=== PATIENT | male | born 1950 | race Caucasian/White ===

== ENCOUNTER 2017-02-05 16:32 | Emergency (ER) | payer MEDICARE, MEDICAID ==
[2017-02-05 17:29] LABS: BASOPHILS % (AUTO) 2 % (0-3); EOSINOPHILS % (AUTO) 3 % (0-9); HEMATOCRIT 33 % (39-53); MEAN CORPUSCULAR HGB CONC 33.7 gm/dl (32.0-36.0); MEAN CORPUSCULAR VOLUME 86 fL (80-100); NEUTROPHILS % (AUTO) 72.7 % (37-80)
[2017-02-05 17:35] LABS: ALBUMIN 3.1 gm/dl (3.4-5.0); CALCIUM 9.2 mg/dl (8.5-10.1); POTASSIUM 4.1 mMol/L (3.5-5.1)
[2017-02-05] MEDS ORDERED: LOPERAMIDE HYDROCHLORIDE 2 MG CAP PO PRN (19:53)
[2017-02-05] MEDS ORDERED: GUAIFENESIN 200 MG/10 ML SOL PO PRN (19:53)
[2017-02-05] MEDS ORDERED: SENNOSIDES A AND B 8.6 MG TAB PO PRN (19:53)
[2017-02-05] MEDS ORDERED: NOVOLOG FLEXPEN SC SCH (21:00)
[2017-02-05] MEDS: LEVEMIR PEN SC SCH (21:11)
[2017-02-05] MEDS: GABAPENTIN 100 MG CAP PO SCH (21:12)
[2017-02-05] MEDS: CARVEDILOL 3.125 MG TAB PO SCH (21:12)
[2017-02-05] MEDS: ACETAMINOPHEN 500 MG 500 MG TAB PO SCH (21:12)
[2017-02-06] MEDS: APAP/HYDROCODONE 325/5 TAB PO PRN (05:21)
[2017-02-06] MEDS: ISOSORBIDE DINITRATE 10 MG TAB PO SCH (08:54)
[2017-02-06] MEDS: CARVEDILOL 3.125 MG TAB PO SCH ×2 (08:54→21:06)
[2017-02-06] MEDS: ACETAMINOPHEN 500 MG 500 MG TAB PO SCH ×3 (08:55→21:06)
[2017-02-06] MEDS: GABAPENTIN 100 MG CAP PO SCH ×4 (08:55→21:11)
[2017-02-06] MEDS: POLYETHYLENE GLYCOL 17 GM/1 TBS PDS PO SCH ×2 (08:55→09:06)
[2017-02-06] MEDS: LEVEMIR PEN SC SCH ×2 (08:58→21:13)
[2017-02-06] MEDS: BUMETANIDE 1 MG TAB PO SCH (10:15)
[2017-02-06] MEDS: NOVOLOG FLEXPEN SC PRN ×2 (12:00→12:14)
[2017-02-06] MEDS: CRAMPS PO PRN ×2 (15:56→21:04)
[2017-02-06] MEDS: NOVOLOG FLEXPEN SC SCH (21:09)
[2017-02-07] MEDS: APAP/HYDROCODONE 325/5 TAB PO PRN (00:36)
[2017-02-07] MEDS: CRAMPS PO PRN ×2 (05:53→11:22)
[2017-02-07 07:21] VITALS: BP 136/85; PULSE 93; RESP 24; TEMP 98.3; O2SAT 97
[2017-02-07] MEDS: NOVOLOG FLEXPEN SC SCH ×2 (08:53→11:33)
[2017-02-07] MEDS: BUMETANIDE 1 MG TAB PO SCH (08:55)
[2017-02-07] MEDS: CARVEDILOL 3.125 MG TAB PO SCH (08:56)
[2017-02-07] MEDS: ISOSORBIDE DINITRATE 10 MG TAB PO SCH (08:56)
[2017-02-07] MEDS: POLYETHYLENE GLYCOL 17 GM/1 TBS PDS PO SCH (08:57)
[2017-02-07] MEDS: ACETAMINOPHEN 500 MG 500 MG TAB PO SCH ×2 (08:57→13:38)
[2017-02-07] MEDS: GABAPENTIN 100 MG CAP PO SCH (08:57)
[2017-02-07] MEDS: LEVEMIR PEN SC SCH (08:58)
== END 2017-02-07 14:55 | DRG 293 ==
LOC: ED 16:32 → ACUTE CARE 18:58 → UNDOADMOB 18:58 → ACUTE CARE 19:00 → ED 02-07 14:55 → UNDODISOB 02-07 14:55
DX: I50.9 Heart failure, unspecified (principal); E11.40 Type 2 diabetes mellitus with diabetic neuropathy, unspecified; N18.3 Chronic kidney disease, stage 3 (moderate); E11.65 Type 2 diabetes mellitus with hyperglycemia; I87.2 Venous insufficiency (chronic) (peripheral); M54.5 Low back pain
CPT/HCPCS: 36415; 80053; 82962; 85025; 99282; 99284; 99285; J1815

== ENCOUNTER 2017-02-16 20:13 | Emergency (ER) | payer MEDICARE, OTHER ==
[2017-02-16 20:23] VITALS: RESP 24
[2017-02-16] MEDS ORDERED: FUROSEMIDE 40 MG SOL IV ONE (20:36)
[2017-02-16] MEDS: SODIUM CHLORIDE 0.9% FLUSH 10 ML SOL IV PRN ×2 (20:40→20:46)
[2017-02-16] MEDS ORDERED: FUROSEMIDE 100 MG SOL ONE (20:41)
[2017-02-16] MEDS ORDERED: ALBUTEROL/IPRATROPIUM 1 VIAL SOL INH ONE ×2 (20:51→22:54)
[2017-02-16] MEDS ORDERED: ALBUTEROL/IPRATROPIUM 1 VIAL SOL ONE ×2 (20:54→22:56)
[2017-02-16 20:57] LABS: BASOPHILS % (AUTO) 1 % (0-3); EOSINOPHILS % (AUTO) 3 % (0-9); HEMATOCRIT 34 % (39-53); MEAN CORPUSCULAR HGB CONC 33.8 gm/dl (32.0-36.0); MEAN CORPUSCULAR VOLUME 87 fL (80-100); NEUTROPHILS % (AUTO) 75.7 % (37-80)
[2017-02-16 21:16] LABS: ALBUMIN 3.4 gm/dl (3.4-5.0); CALCIUM 8.7 mg/dl (8.5-10.1); POTASSIUM 4.1 mMol/L (3.5-5.1)
[2017-02-17 00:16] VITALS: TEMP 99.2
[2017-02-17 00:18] VITALS: BP 130/64; PULSE 102; O2SAT 95
== END 2017-02-16 23:05 | DRG 293 ==
LOC: ED 20:13
DX: I50.42 Chronic combined systolic (congestive) and diastolic (congestive) heart failure (principal)
CPT/HCPCS: 36415; 71010; 80053; 83880; 85025; 99285; J1940; J7620

== ENCOUNTER 2017-02-20 16:41 | Emergency (ER) | payer MEDICARE, OTHER ==
[2017-02-20 16:53] VITALS: TEMP 96.9
[2017-02-20] MEDS ORDERED: ALBUTEROL/IPRATROPIUM 1 VIAL SOL ONE (16:59)
[2017-02-20] MEDS: ALBUTEROL/IPRATROPIUM 1 VIAL SOL INH ONE (17:02)
[2017-02-20 17:13] VITALS: RESP 18
[2017-02-20 17:13] LABS: BASOPHILS % (AUTO) 1 % (0-3); EOSINOPHILS % (AUTO) 2 % (0-9); HEMATOCRIT 35 % (39-53); MEAN CORPUSCULAR HGB CONC 34.2 gm/dl (32.0-36.0); MEAN CORPUSCULAR VOLUME 85 fL (80-100); MONOCYTES % (AUTO) 12.5 % (0-12); NEUTROPHILS % (AUTO) 76.2 % (37-80)
[2017-02-20 17:26] LABS: ALBUMIN 2.9 gm/dl (3.4-5.0); CALCIUM 9.1 mg/dl (8.5-10.1); POTASSIUM 3.9 mMol/L (3.5-5.1)
[2017-02-20] MEDS ORDERED: CEFTRIAXONE 1 GM PDS ONE (19:18)
[2017-02-20] MEDS ORDERED: LIDOCAINE HCL 1% MPF SOL ONE (19:18)
[2017-02-20] MEDS: CEFTRIAXONE 1 GM PDS IM ONE (19:19)
[2017-02-20 19:49] VITALS: BP 136/74; PULSE 86; O2SAT 90
== END 2017-02-20 19:38 | DRG 194 ==
LOC: ED 16:41
DX: J18.9 Pneumonia, unspecified organism (principal); L03.115 Cellulitis of right lower limb
CPT/HCPCS: 36415; 71010; 80053; 85025; 87040; 87804; 99285; J0696; J7620; J2001

== ENCOUNTER 2017-02-23 18:50 | Emergency (ER) | payer MEDICARE, OTHER ==
[2017-02-23] MEDS ORDERED: SOLUMEDROL 125 MG/2 ML 125 MG/2 ML PDS IM ONE (19:06)
[2017-02-23] MEDS ORDERED: SOLUMEDROL 125 MG/2 ML 125 MG/2 ML PDS ONE (19:08)
[2017-02-23 21:40] VITALS: RESP 18
[2017-02-24 00:48] VITALS: BP 108/59; PULSE 106; TEMP 98.6; O2SAT 94
== END 2017-02-24 09:30 | DRG 195 ==
LOC: ED 18:50
DX: J18.9 Pneumonia, unspecified organism (principal)
CPT/HCPCS: 96372; 99283; 99284; J2930